=== PATIENT | female | born 1985 | race Caucasian/White ===

== ENCOUNTER 2016-05-22 05:55 | Emergency (ER) | payer OTHER ==
[~2016-05-22 05:55] MED LIST: AMBIEN 10MG10 MG PO; AUGMENTIN 875-1 EACH PO; CLONAZEPAM0.5 MG PO; CLONAZEPAM2 MG PO; DEPAKOTE500 M1 PO; GABAPENTIN400 MG PO; KLONOPIN2 MG PO; LATUDA20 MG PO; LEVAQUIN750 MG PO; MEDROL4 M1 PO; NEURONTIN400 M1 PO; PERCOCET 325 MG1 TA2 PO; PRENATAL VITAMI1 TA4 PO; PROVENTIL0.09 MG/A1 INH; PROZAC40 MG PO; TESSALON PERLE100 MG PO
[2016-05-22 06:06] VITALS: BP 128/75
--- NOTE | 2016-05-22 06:57 | ED SKIN/ALLERGY COMPLAINT ---
History of Present Illness General Chief Complaint: Skin Rash/ Abcess Stated Complaint: ABCESS ON INNER LEFT THIGH/PAINFUL Source: patient, old records Exam Limitations: no limitations Vital Signs & Intake/Output Vital Signs & Intake/Output Vital Signs Date Time Temp Pulse Resp B/P Pulse O2 O2 Flow FiO2 Ox Delivery Rate 05/22 0606 97.9 112 22 128/75 99 Allergies Coded Allergies: NO KNOWN ALLERGIES (10/31/15) Reconcile Medications Amoxicillin 875 MG TABLET 1 TAB PO BID abscess Divalproex Sodium (Depakote) 500 MG TABLET.DR 1 TAB PO BID MENTAL HEALTH ( Reported) Doxycycline Hyclate (Vibramycin) 100 MG CAPSULE 1 CAP PO BID cellulitis Fluoxetine Hydrochloride (Prozac) 40 MG CAP 1 CAP PO DAILY DEPRESSION Gabapentin (Neurontin) 400 MG CAPSULE 1 CAP PO TID ANXIETY (Reported) Ibuprofen 600 MG TABLET 1 TAB PO Q6PRN PRN pain with food LURASIDONE HCL (Latuda) 20 MG TAB 1 TAB PO DAILY MENTAL HEALTH (Reported) Triage Note: PER PT ABSCESS TO L THIGH X 1 WEEK, LMP JUST ENDED, Triage Nurses Notes Reviewed? yes Onset: 1 month Duration: week(s):, continues in ED, getting worse Timing: recent history Severity: moderate Location: extremities Possible Factors: recurrent abscesses Associated Symptoms: change in skin texture, swelling/mass/lumps LMP (ages 10-50): unknown : No Patient currently breastfeeds: No HPI: 1 month prior to admission patient complains of left thigh abscess that drained purulent material. 2 weeks prior to admission and again opened and drained. 2 days prior to admission the abscess increased in size with surrounding erythema without drainage. She denies fever chills nausea vomiting diarrhea abdominal pain chest pain shortness breath headache dysuria bleeding Past History Travel History Traveled to [place] past 21 day No Medical History Any Pertinent Medical History? 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 MOTHER (Diabetes, HTN, HLD, Stroke). Hx Contributory? No Review of Systems Review of Systems Constitutional: Reports: no symptoms. EENTM: Reports: no symptoms. Respiratory: Reports: no symptoms. Cardiovascular: Reports: no symptoms. GI: Reports: no symptoms. Genitourinary: Reports: no symptoms. Musculoskeletal: Reports: no symptoms. Skin: Reports: see HPI, rash. Neurological/Psychological: Reports: no symptoms. Hematologic/Endocrine: Reports: no symptoms. Immunologic/Allergic: Reports: no symptoms. All Other Systems: Reviewed and Negative Physical Exam Physical Exam General Appearance: well developed/nourished, alert, awake, anxious, moderate distress, obese Head: atraumatic, normal appearance Eyes: Bilateral: normal appearance, PERRL, EOMI. Ears, Nose, Throat: normal pharynx, normal ENT inspection, hearing grossly normal Neck: normal inspection, supple Respiratory: normal breath sounds Cardiovascular: regular rate/rhythm Peripheral Pulses: 4+ carotid (R), 4+ carotid (L) Gastrointestinal: normal bowel sounds, soft, non-tender, no organomegaly Back: normal inspection, normal range of motion, no vertebral tenderness Extremities: normal inspection, normal capillary refill, normal range of motion, no edema Neurologic/Psych: awake, alert, oriented x 3, normal mood/affect Reflexes: 2+: bicep (R), bicep (L). Skin: rash Skin Problem Location: lower extremities (Left medial thigh) Skin Problem Character: abcess, erythema, tenderness, thickening Lymphatic: no anterior cervical surjit Progress Differential Diagnosis: abscess/cellulitis, allergic reaction Plan of Care: Current Medications Sig/Anna Start time Last Medication Dose Stop Time Status Admin Doxycycline Hyclate 100 MG ONCE ONE 05/22 699 UNVr (Vibramycin) 05/22 700 Departure Departure Time of Disposition: 699 Disposition: HOME OR SELF CARE Condition: Stable Clinical Impression Primary Impression: Abscess of left leg Referrals: JASMIN PARKER,VENKAT Saldaña Call for surgical follow up ASHLEY LAWSON MD (PCP/Family) Departure Forms: Customer Survey General Discharge Information Prescriptions: Current Visit Scripts Amoxicillin 1 TAB PO BID #20 TAB Doxycycline Hyclate (Vibramycin) 1 CAP PO BID #20 CAP Ibuprofen 1 TAB PO Q6PRN PRN pain #50 TAB with food Procedures Incision and Drainage Site: L thigh Blade Size: 10 I & D Procedure: Yes: betadine prep, sterile drapes applied, sterile dressing applied, wick placed.
[2016-05-22] MEDS ORDERED: VIBRAMYCIN100 MG PO (07:01)
[2016-05-22] MEDS ORDERED: AMOXICILLIN875 M1 PO (07:01)
[2016-05-22] MEDS ORDERED: IBUPROFEN600 M1 PO (07:06)
== END 2016-05-22 07:15 ==
LOC: ERH 05:55
DX: L02.416 Cutaneous abscess of left lower limb (principal)

== ENCOUNTER 2017-08-11 12:59 | Emergency (ER) | payer OTHER ==
[~2017-08-11] VITALS: Ht 162.6 cm; Wt 108.9 kg
[~2017-08-11 12:59] MED LIST changes: +AMOXICILLIN875 M1 PO; +BACTRIM DS TAB1 EACH PO; +CLONAZEPAM1 M2 PO; +IBUPROFEN600 M1 PO; +IBUPROFEN800 M1 PO; +VIBRAMYCIN100 MG PO; +ZOFRAN ODT4 M1 SL
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
[2017-08-11 13:14] VITALS: BP 145/89
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
[2017-08-11] MEDS ORDERED: ROBAXIN500 M1 PO (15:19)
[2017-08-11] MEDS ORDERED: IBUPROFEN800 M1 PO (15:19)
== END 2017-08-11 15:38 ==
LOC: ERH 12:59
DX: S09.90XA Unspecified injury of head, initial encounter (principal); M54.5 Low back pain; V49.40XA Driver injured in collision with unspecified motor vehicles in traffic accident, initial encounter; Y92.9 Unspecified place or not applicable
CPT/HCPCS: J3101